=== PATIENT | male | born 1960 | race Asian ===

== ENCOUNTER 2018-06-09 20:24 | Inpatient (IN) | payer OTHER ==
[~2018-06-09] VITALS: Ht 175.3 cm; Wt 79.5 kg
[2018-06-09 21:51] VITALS: Ht 175.3 cm; Wt 79.5 kg
[2018-06-09 23:37] LABS: BASOPHIL % 0.2 % (0-2); PLATELET COUNT 187 x10^3mcL (130-400); RED CELL DISTRIBUTION WIDTH 13.1 % (11.5-14.5)
[2018-06-09 23:48] LABS: CALCIUM 8.9 mg/dL (8.5-10.1); CREATININE SERUM 1.5 mg/dL (0.7-1.3); POTASSIUM SERUM 4.2 mmol/L (3.5-5.1)
[2018-06-09 23:54] LABS: ALBUMIN 3.5 g/dL (3.4-5.0); BILIRUBIN TOTAL 0.3 mg/dL (0.20-1.00); TOTAL PROTEIN, SERUM 7.1 g/dL (6.4-8.2)
[2018-06-10] MEDS ORDERED: ZOCOR40 MG PO (01:10)
[2018-06-10] MEDS ORDERED: ZESTRIL10 MG PO (01:10)
[2018-06-10 02:34] VITALS: BP 107/59
[2018-06-10 05:39] VITALS: BP 93/55
[2018-06-10 09:32] VITALS: BP 97/62
[2018-06-10 13:07] VITALS: BP 103/61
[2018-06-10 17:28] VITALS: BP 105/68
[2018-06-10 18:12] VITALS: BP 105/68
== END 2018-06-10 18:43 | disposition home or self-care (01) | DRG 313 ==
LOC: ED 20:24 → DU 06-10 00:37
PROVIDERS: Emergency Medicine; ADMIT Internal Medicine Pulmonary Disease
DX: R07.9 Chest pain, unspecified (principal); I10 Essential (primary) hypertension; E78.00 Pure hypercholesterolemia, unspecified; E78.5 Hyperlipidemia, unspecified
CPT/HCPCS: 83880